=== PATIENT | male | born 1985 | race Caucasian/White ===

== ENCOUNTER 2019-01-18 17:06 | Inpatient (IN) | payer OTHER ==
--- NOTE | 2019-01-18 17:43 | EDM.PDOC ---
ED HPI GENERAL MEDICAL PROBLEM - General Chief Complaint: General Stated Complaint: CHEAST PAIN Time Seen by Provider: 01/18/19 17:22 Source of Information: Reports: Patient History Limitations: Reports: No Limitations - History of Present Illness INITIAL COMMENTS - FREE TEXT/NARRATIVE: Presents via EMS and law enforcement. He was sleeping in his vehicle at an intersection. Presented awake alert and orientated and conversive. He states that he drinks approximately 1.75 L of hard liquor every 2 days and has been doing so for the last couple of years at least. He states "I've been feeling like crap for a long time". He states he does not sleep well and has been told by many people he snores like a freight train and should be tested for sleep apnea. He only gets about 2 hours of sleep at night. 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 Today he drove from [place] to [facility] and then was diverted over to [place] by [facility]. He was "going to get something to eat" when he fell asleep at the intersection. He states that over the last 2 weeks his "Tummy swelled up" but otherwise is not really noticed the severe swelling and redness in his lower legs and feet or the jaundice and his eyes. He does not get any kind of medical care and reports no medical problems. Treatments MANAGER INTENSIVE CARE: Reports: EKG, Oxygen bilat lower extremities Pain Score (Numeric/FACES): 7 - Related Data Allergies Allergy/AdvReac Type Severity Reaction Status Date / Time cephalexin [From Keflex] Allergy Vomiting Verified 01/18/19 17:28 clarithromycin [From Biaxin] Allergy Vomiting Verified 01/18/19 17:28 Home Meds: Home Meds . [No Known Home Meds] 01/18/19 [History] ED ROS GENERAL - Review of Systems Review Of Systems: See Below Constitutional: Reports: Fatigue HEENT: Reports: No Symptoms Respiratory: Reports: Shortness of Breath Cardiovascular: Reports: Dyspnea on Exertion, Edema (abd) Endocrine: Reports: No Symptoms GI/Abdominal: Reports: Other (swelling in abd) : Reports: No Symptoms Musculoskeletal: Reports: No Symptoms Skin: Reports: Other (erythema, 2+ edema from feet up to belly button) Neurological: Reports: No Symptoms Psychiatric: Reports: No Symptoms Hematologic/Lymphatic: Reports: No Symptoms Immunologic: Reports: No Symptoms ED EXAM, GENERAL - Physical Exam Exam: See Below Exam Limited By: No Limitations General Appearance: Alert, No Apparent Distress Ears: Normal External Exam, Normal TMs Nose: Normal Inspection Throat/Mouth: Normal Inspection Head: Atraumatic, Normocephalic Neck: Normal Inspection Respiratory/Chest: No Respiratory Distress, Lungs Clear, Normal Breath Sounds Cardiovascular: Other (2+ pitting edema in the feet and lower legs. Swelling in the lower abdomen up to the umbilicus) GI/Abdominal: Non-Tender, Other (Firm and bright pink from groin to just above the umbilicus,) Back Exam: Normal Inspection Extremities: Other ([place] from toes to thighs with 2-3+ pitting edema) Neurological: Alert, Oriented Psychiatric: Normal Affect, Normal Mood Skin Exam: Warm, Dry, Intact, No Rash, Ecchymosis EKG INTERPRETATION Rhythm: NSR [place]: Normal P-Wave: Present QRS: Normal ST-T: Normal QT: Normal Course - Vital Signs Last Recorded V/S: Last Vital Signs Temp Pulse 109 H 01/18/19 17:17 Resp 24 H 01/18/19 17:17 BP 152/95 H 01/18/19 17:17 Pulse Ox - Orders/Labs/Meds Orders: Active Orders 24 hr Category Date Time Status EKG Documentation Completion [RC] STAT Care 01/18/19 17:25 Ordered CXR [Chest 1V Frontal] [CR] Stat Exams 01/18/19 17:25 Ordered ABG [BLOOD GAS ARTERIAL] [BG] Stat Lab 01/18/19 17:26 Ordered AMYLASE [CHEM] Stat Lab 01/18/19 17:23 Ordered B-TYPE NATRIURETIC PEPTIDE,BNP [CHEM] Stat Lab 01/18/19 17:24 Ordered CBC WITH AUTO DIFF [HEME] Stat Lab 01/18/19 17:23 Ordered CMP [COMPREHENSIVE METABOLIC PN,CMP] [CHEM] Stat Lab 01/18/19 17:23 Ordered LIPASE [CHEM] Stat Lab 01/18/19 17:24 Ordered TROPONIN I [CHEM] Stat Lab 01/18/19 17:24 Ordered - Re-Assessments/Exams Free Text/Narrative Re-Assessment/Exam: 01/18/19 19:[address] Jacques Pruitt, hospitalist regarding labs, history, clinical condition. Same will admit patient. Departure - Departure Time of Disposition: 19:33 Disposition: Admitted As Inpatient 68 Condition: Fair Clinical Impression: Hypokalemia - Discharge Information Referrals: PCP,None [Primary Care Provider] - - My Orders Last 24 Hours: My Active Orders 01/18/19 17:23 AMYLASE [CHEM] Stat CBC WITH AUTO DIFF [HEME] Stat CMP [COMPREHENSIVE METABOLIC PN,CMP] [CHEM] Stat 01/18/19 17:24 B-TYPE NATRIURETIC PEPTIDE,BNP [CHEM] Stat LIPASE [CHEM] Stat TROPONIN I [CHEM] Stat 01/18/19 17:25 EKG Documentation Completion [RC] STAT CXR [Chest 1V Frontal] [CR] Stat 01/18/19 17:26 ABG [BLOOD GAS ARTERIAL] [BG] Stat - Assessment/Plan Last 24 Hours: My Active Orders 01/18/19 17:23 AMYLASE [CHEM] Stat CBC WITH AUTO DIFF [HEME] Stat CMP [COMPREHENSIVE METABOLIC PN,CMP] [CHEM] Stat 01/18/19 17:24 B-TYPE NATRIURETIC PEPTIDE,BNP [CHEM] Stat LIPASE [CHEM] Stat TROPONIN I [CHEM] Stat 01/18/19 17:25 EKG Documentation Completion [RC] STAT CXR [Chest 1V Frontal] [CR] Stat 01/18/19 17:26 ABG [BLOOD GAS ARTERIAL] [BG] Stat
--- NOTE | 2019-01-18 17:54 | CR ---
Indication: Shortness breath. Hypoxia. Fatigue. Technique: Single AP portable view of the chest was obtained. Comparison: None Findings: The left hemidiaphragm is elevated. The heart is normal in size. No infiltrate, pleural effusion, or pneumothorax is identified. Impression: No acute cardiopulmonary process. Dictated by Jennyfer Cooney MD @ Jan 18 2019 5:52PM Signed by Dr. Jennyfer Cooney @ Jan 18 2019 5:52PM
[2019-01-18 17:58] LABS: LIPASE 253 U/L (73-393)
[2019-01-18] MEDS ORDERED: Furosemide 40 MG/4 ML VIAL IVPUSH ONE (18:28)
[2019-01-18 18:54] LABS: BLOOD UREA NITROGEN,BUN 3 mg/dL (7.0-18.0); CARBON DIOXIDE,CO2 30.7 mmol/L (21.0-32.0); CHLORIDE,CL 87 mmol/L (98-107); GLUCOSE RANDOM 117 mg/dL (74-106); POTASSIUM,K 3.1 mmol/L (3.5-5.1); SODIUM,NA 131 mmol/L (136-148)
[2019-01-18] MEDS ORDERED: Potassium Chloride 20 MEQ Tab.ER PO ONE (22:59)
[2019-01-18] MEDS ORDERED: LORazepam 2 MG/ML SDV IVPUSH PRN (23:04)
--- NOTE | 2019-01-18 23:07 | PCM.HP.2 ---
H&P History of Present Illness - General Date of Service: 01/18/19 Admit Problem/Dx: Admission Diagnosis/Problem Admission Diagnosis/Problem Edema - History of Present Illness Initial Comments - Free Text/Narative: 33 yo male who presents to the ED via EMS after being found sleeping in his vehicle at an intersection. He reports increasing fatigue, weakness and swelling. HE reports lower leg edema extending to his abdomen that has been building up over the past three weeks. He reports orthopnea. He reports his sleep has been poor and he is drowsy during the day. He drinks 1 liter of alcohol a day. His eyes are yellow on and off over the past month. He denies any fever or blood in his stool. He denies any history of heart, lung or liver disease bilat lower extremities Pain Score (Numeric/FACES): 7 Bilateral Ankle Pain Score (Numeric/FACES): 5 - Related Data Allergies/Adverse Reactions: Allergies Allergy/AdvReac Type Severity Reaction Status Date / Time cephalexin [From Keflex] Allergy Vomiting Verified 01/18/19 20:37 clarithromycin [From Biaxin] Allergy Vomiting Verified 01/18/19 20:37 Home Medications: Home Meds . [No Known Home Meds] 01/18/19 [History] Past Medical History - Past Surgical History Musculoskeletal Surgical History: Reports: Other (See Below) Other Musculoskeletal Surgeries/Procedures:: L knee surgery "T Plate" Social & Family History - Tobacco Use Smoking Status *Q: Never Smoker Second Hand Smoke Exposure: Yes - Caffeine Use Caffeine Use: Reports: Coffee - Alcohol Use Days Per Week of Alcohol Use: 7 Number of Drinks Per Day: 7 Total Drinks Per Week: 49 Date of Last Drink: 01/18/19 - Recreational Drug Use Recreational Drug Use: No H&P Review of Systems - Review of Systems: Review Of Systems: ROS reveals no pertinent complaints other than HPI. Exam - Exam Exam: See Below - Vital Signs Vital Signs: Last Vital Signs Temp 36.6 C 01/18/19 20:16 Pulse 116 H 01/18/19 20:16 Resp 22 H 01/18/19 20:16 BP 181/117 H 01/18/19 20:16 Pulse Ox 96 01/18/19 20:16 Weight: 206.248 kg - Exam General: Alert, Oriented HEENT: Mucosa Moist & [place] Lungs: Clear to Auscultation, Normal Respiratory Effort Cardiovascular: Regular Rate, Regular Rhythm GI/Abdominal Exam: Other (obese, no fluid wave) Extremities: Pedal Edema (pitting edema up to umbilicus) Skin: Warm, Dry, Intact Neurological: Cranial Nerves Intact, Reflexes Equal Bilateral. No: Focal Deficit - Patient Data Lab Results Last 24 hrs: Laboratory Results - last 24 hr 01/18/19 01/18/19 01/18/19 Range/Units 17:15 17:15 17:15 WBC 11.36 H (4.0-11.0) K/uL RBC 3.77 L (4.50-5.90) M/uL Hgb 13.8 (13.0-17.0) g/dL Hct 40.7 (38.0-50.0) % MCV 108.0 H (80.0-98.0) fL MCH 36.6 H (27.0-32.0) pg MCHC 33.9 (31.0-37.0) g/dL RDW Std Deviation 65.8 H (28.0-62.0) fl RDW Coeff of Judy 17 H (11.0-15.0) % Plt Count 206 (150-400) K/uL MPV 10.80 (7.40-12.00) fL Add Manual Diff YES Neutrophils % (Manual) 81 H (48.0-80.0) % Band Neutrophils % 2 % Lymphocytes % (Manual) 11 L (16.0-40.0) % Monocytes % (Manual) 6 (0.0-15.0) % Nucleated RBC % 1.0 /100WBC Absolute Seg Neuts 9.2 H (1.4-5.7) Band Neutrophils # 0.2 Lymphocytes # (Manual) 1.2 (0.6-2.4) Monocytes # (Manual) 0.7 (0.0-0.8) Nucleated RBCs # 0 K/uL INR Sodium (136-148) mmol/L Potassium (3.5-5.1) mmol/L Chloride (98-107) mmol/L Carbon Dioxide (21.0-32.0) mmol/L BUN (7.0-18.0) mg/dL Creatinine (0.8-1.3) mg/dL Est Cr Clr Drug Dosing mL/min Estimated GFR (MDRD) ml/min Glucose (74-106) mg/dL Calcium (8.5-10.1) mg/dL Magnesium (1.8-2.4) mg/dL Total Bilirubin (0.2-1.0) mg/dL AST (15-37) IU/L ALT (14-63) IU/L Alkaline Phosphatase (46-116) U/L Troponin I < 0.050 (0.000-0.056) ng/mL B-Natriuretic Peptide 43 (<100) PG/ML Total Protein (6.4-8.2) g/dL Albumin (3.4-5.0) g/dL Globulin (2.6-4.0) g/dL Albumin/Globulin Ratio (0.9-1.6) Amylase 55 (25-115) U/L Lipase 253 (73-393) U/L Urine Color Urine Appearance Urine pH (5.0-8.0) Ur Specific [place] (1.001-1.035) Urine Protein (NEGATIVE) mg/dL Urine Glucose (UA) (NEGATIVE) mg/dL Urine Ketones (NEGATIVE) mg/dL Urine Occult Blood (NEGATIVE) Urine Nitrite (NEGATIVE) Urine Bilirubin (NEGATIVE) Urine Ictotest Urine Urobilinogen (<2.0) EU/dL Ur Leukocyte Esterase (NEGATIVE) Urine RBC (0-2/HPF) Urine WBC (0-5/HPF) Ur Epithelial Cells (NONE-FEW) Urine Bacteria (NEGATIVE) Hyaline Casts (0-2/LPF) Coarse Granular Casts (NEGATIVE) Urine Mucus (NONE-MOD) 01/18/19 01/18/19 01/18/19 Range/Units 17:15 18:21 18:21 WBC (4.0-11.0) K/uL RBC (4.50-5.90) M/uL Hgb (13.0-17.0) g/dL Hct (38.0-50.0) % MCV (80.0-98.0) fL MCH (27.0-32.0) pg MCHC (31.0-37.0) g/dL RDW Std Deviation (28.0-62.0) fl RDW Coeff of Judy (11.0-15.0) % Plt Count (150-400) K/uL MPV (7.40-12.00) fL Add Manual Diff Neutrophils % (Manual) (48.0-80.0) % Band Neutrophils % % Lymphocytes % (Manual) (16.0-40.0) % Monocytes % (Manual) (0.0-15.0) % Nucleated RBC % /100WBC Absolute Seg Neuts (1.4-5.7) Band Neutrophils # Lymphocytes # (Manual) (0.6-2.4) Monocytes # (Manual) (0.0-0.8) Nucleated RBCs # K/uL INR 1.28 Sodium 131 L (136-148) mmol/L Potassium 3.1 L (3.5-5.1) mmol/L Chloride 87 L (98-107) mmol/L Carbon Dioxide 30.7 (21.0-32.0) mmol/L BUN 3 L (7.0-18.0) mg/dL Creatinine 0.8 (0.8-1.3) mg/dL Est Cr Clr Drug Dosing 151.20 mL/min Estimated GFR (MDRD) > 60.0 ml/min Glucose 117 H (74-106) mg/dL Calcium 8.6 (8.5-10.1) mg/dL Magnesium 1.6 L (1.8-2.4) mg/dL Total Bilirubin 11.3 H (0.2-1.0) mg/dL AST 378 H (15-37) IU/L ALT 125 H (14-63) IU/L Alkaline Phosphatase 325 H (46-116) U/L Troponin I (0.000-0.056) ng/mL B-Natriuretic Peptide (<100) PG/ML Total Protein 7.9 (6.4-8.2) g/dL Albumin 2.5 L (3.4-5.0) g/dL Globulin 5.4 H (2.6-4.0) g/dL Albumin/Globulin Ratio 0.5 L (0.9-1.6) Amylase (25-115) U/L Lipase (73-393) U/L Urine Color Urine Appearance Urine pH (5.0-8.0) Ur Specific [place] (1.001-1.035) Urine Protein (NEGATIVE) mg/dL Urine Glucose (UA) (NEGATIVE) mg/dL Urine Ketones (NEGATIVE) mg/dL Urine Occult Blood (NEGATIVE) Urine Nitrite (NEGATIVE) Urine Bilirubin (NEGATIVE) Urine Ictotest Urine Urobilinogen (<2.0) EU/dL Ur Leukocyte Esterase (NEGATIVE) Urine RBC (0-2/HPF) Urine WBC (0-5/HPF) Ur Epithelial Cells (NONE-FEW) Urine Bacteria (NEGATIVE) Hyaline Casts (0-2/LPF) Coarse Granular Casts (NEGATIVE) Urine Mucus (NONE-MOD) 01/18/19 Range/Units 19:37 WBC (4.0-11.0) K/uL RBC (4.50-5.90) M/uL Hgb (13.0-17.0) g/dL Hct (38.0-50.0) % MCV (80.0-98.0) fL MCH (27.0-32.0) pg MCHC (31.0-37.0) g/dL RDW Std Deviation (28.0-62.0) fl RDW Coeff of Judy (11.0-15.0) % Plt Count (150-400) K/uL MPV (7.40-12.00) fL Add Manual Diff Neutrophils % (Manual) (48.0-80.0) % Band Neutrophils % % Lymphocytes % (Manual) (16.0-40.0) % Monocytes % (Manual) (0.0-15.0) % Nucleated RBC % /100WBC Absolute Seg Neuts (1.4-5.7) Band Neutrophils # Lymphocytes # (Manual) (0.6-2.4) Monocytes # (Manual) (0.0-0.8) Nucleated RBCs # K/uL INR Sodium (136-148) mmol/L Potassium (3.5-5.1) mmol/L Chloride (98-107) mmol/L Carbon Dioxide (21.0-32.0) mmol/L BUN (7.0-18.0) mg/dL Creatinine (0.8-1.3) mg/dL Est Cr Clr Drug Dosing mL/min Estimated GFR (MDRD) ml/min Glucose (74-106) mg/dL Calcium (8.5-10.1) mg/dL Magnesium (1.8-2.4) mg/dL Total Bilirubin (0.2-1.0) mg/dL AST (15-37) IU/L ALT (14-63) IU/L Alkaline Phosphatase (46-116) U/L Troponin I (0.000-0.056) ng/mL B-Natriuretic Peptide (<100) PG/ML Total Protein (6.4-8.2) g/dL Albumin (3.4-5.0) g/dL Globulin (2.6-4.0) g/dL Albumin/Globulin Ratio (0.9-1.6) Amylase (25-115) U/L Lipase (73-393) U/L Urine Color YELLOW Urine Appearance HAZY Urine pH 6.0 (5.0-8.0) Ur Specific [place] 1.015 (1.001-1.035) Urine Protein 30 H (NEGATIVE) mg/dL Urine Glucose (UA) NEGATIVE (NEGATIVE) mg/dL Urine Ketones NEGATIVE (NEGATIVE) mg/dL Urine Occult Blood TRACE-INTACT H (NEGATIVE) Urine Nitrite NEGATIVE (NEGATIVE) Urine Bilirubin LARGE H (NEGATIVE) Urine Ictotest POSITIVE Urine Urobilinogen 1.0 (<2.0) EU/dL Ur Leukocyte Esterase NEGATIVE (NEGATIVE) Urine RBC 0-2 (0-2/HPF) Urine WBC 2-4 (0-5/HPF) Ur Epithelial Cells OCCASIONAL (NONE-FEW) Urine Bacteria FEW (NEGATIVE) Hyaline Casts 0-2 (0-2/LPF) Coarse Granular Casts 0-2 (NEGATIVE) Urine Mucus LIGHT (NONE-MOD) Result Diagrams: 01/21/19 06:23 01/21/19 06:23 Problem List Initiated/Reviewed/Updated: Yes Orders Last 24hrs: Active Orders 24 hr Category Date Time Status Patient Status [ADT] Stat ADT 01/18/19 19:27 Active Antiembolic Devices [RC] PER UNIT ROUTINE Care 01/18/19 23:01 Ordered EKG Documentation Completion [RC] STAT Care 01/18/19 17:25 Active Oxygen Therapy [RC] PRN Care 01/18/19 23:00 Ordered Up ad Eleni [RC] ASDIRECTED Care 01/18/19 22:59 Ordered VTE/DVT Education [RC] PER UNIT ROUTINE Care 01/18/19 23:00 Ordered Vital Signs [RC] Q4H Care 01/18/19 23:00 Ordered Regular Diet [DIET] Diet 01/18/19 Breakfast Ordered Abdomen Comp [US] Routine Exams 01/18/19 23:04 Ordered Echo Comp wo Cont [US] Routine Exams 01/18/19 23:04 Ordered CBC WITH AUTO DIFF [HEME] AM Lab 01/19/19 05:11 Ordered CBC WITH AUTO DIFF [HEME] AM Lab 01/20/19 05:11 Ordered CBC WITH AUTO DIFF [HEME] AM Lab 01/21/19 05:11 Ordered CBC WITH AUTO DIFF [HEME] AM Lab 01/22/19 05:11 Ordered CBC WITH AUTO DIFF [HEME] AM Lab 01/23/19 05:11 Ordered COMPREHENSIVE METABOLIC PN,CMP [CHEM] AM Lab 01/19/19 05:11 Ordered COMPREHENSIVE METABOLIC PN,CMP [CHEM] AM Lab 01/20/19 05:11 Ordered COMPREHENSIVE METABOLIC PN,CMP [CHEM] AM Lab 01/21/19 05:11 Ordered COMPREHENSIVE METABOLIC PN,CMP [CHEM] AM Lab 01/22/19 05:11 Ordered COMPREHENSIVE METABOLIC PN,CMP [CHEM] AM Lab 01/23/19 05:11 Ordered HEPATITIS PANEL (4) [REF] Routine Lab 01/18/19 21:33 Ordered INR,PT,PROTHROMBIN TIME [COAG] AM Lab 01/19/19 05:11 Ordered INR,PT,PROTHROMBIN TIME [COAG] AM Lab 01/20/19 05:11 Ordered INR,PT,PROTHROMBIN TIME [COAG] AM Lab 01/21/19 05:11 Ordered INR,PT,PROTHROMBIN TIME [COAG] AM Lab 01/22/19 05:11 Ordered INR,PT,PROTHROMBIN TIME [COAG] AM Lab 01/23/19 05:11 Ordered MAGNESIUM [CHEM] AM Lab 01/19/19 05:11 Ordered MAGNESIUM [CHEM] AM Lab 01/20/19 05:11 Ordered MAGNESIUM [CHEM] AM Lab 01/21/19 05:11 Ordered MAGNESIUM [CHEM] AM Lab 01/22/19 05:11 Ordered MAGNESIUM [CHEM] AM Lab 01/23/19 05:11 Ordered PHOSPHORUS [CHEM] AM Lab 01/19/19 05:11 Ordered PHOSPHORUS [CHEM] AM Lab 01/20/19 05:11 Ordered PHOSPHORUS [CHEM] AM Lab 01/21/19 05:11 Ordered PHOSPHORUS [CHEM] AM Lab 01/22/19 05:11 Ordered PHOSPHORUS [CHEM] AM Lab 01/23/19 05:11 Ordered Folic Acid Med 01/18/19 23:15 Ordered 1 mg SUBCUT DAILY LORazepam [Ativan] Med 01/18/19 23:04 Ordered See Protocol IVPUSH Q4H PRN Pantoprazole [ProTONIX] Med 01/18/19 23:15 Ordered 40 mg PO DAILY Thiamine [Vitamin B-1] Med 01/18/19 23:15 Ordered 100 mg IV DAILY Sequential Compression Device [OM.PC] Per Unit Routine Oth 01/18/19 23:00 Ordered Resuscitation Status Routine Resus Stat 01/18/19 22:59 Ordered Medication Orders Folic Acid (Folic Acid) 1 mg SUBCUT DAILY MAUDE Lorazepam (Ativan) 0 mg IVPUSH Q4H PRN; Protocol PRN Reason: Agitation Pantoprazole Sodium (Protonix) 40 mg PO DAILY MAUDE Thiamine HCl (Vitamin B-1) 100 mg IV DAILY MAUDE Assessment/Plan Comment:: 33 yo male admitted with edema, hyperbilirubinemia and alcohol abuse concerning for ETOH cirrhosis, acute hepatitis or heart failure. We will diurese with lasix, obtain echocardiogram, abdominal ultrasound. We will give Ativan prn CIWA protocol with thiamin and folic acid.
[2019-01-18] MEDS: Pantoprazole 40 MG Tab.CR PO SCH (23:41)
[2019-01-18] MEDS: Thiamine 200 MG/2 ML MDV IV SCH (23:44)
[2019-01-18] MEDS: Folic Acid 50 MG/10 ML MDV SUBCUT SCH (23:49)
[2019-01-19 05:31] LABS: BLOOD UREA NITROGEN,BUN 4 mg/dL (7.0-18.0); CARBON DIOXIDE,CO2 32.7 mmol/L (21.0-32.0); CHLORIDE,CL 90 mmol/L (98-107); GLUCOSE RANDOM 114 mg/dL (74-106); POTASSIUM,K 3.8 mmol/L (3.5-5.1); SODIUM,NA 132 mmol/L (136-148)
[2019-01-19] MEDS ORDERED: Potassium Chloride 20 MEQ Tab.ER PO ONE (07:57)
[2019-01-19] MEDS ORDERED: Magnesium Sulfate/Water 4 GM in Premix Bag 1 BAG IV ONE (07:57)
[2019-01-19] MEDS: Pantoprazole 40 MG Tab.CR PO SCH (08:31)
[2019-01-19] MEDS: Thiamine 200 MG/2 ML MDV IV SCH (08:31)
[2019-01-19] MEDS: Folic Acid 50 MG/10 ML MDV SUBCUT SCH (08:31)
[2019-01-19] MEDS ORDERED: Furosemide 40 MG/4 ML VIAL IVPUSH ONE (09:20)
--- NOTE | 2019-01-19 09:50 | PCM.PN ---
- General Info Date of Service: 01/19/19 Admission Dx/Problem (Free Text): Admission Diagnosis/Problem Admission Diagnosis/Problem Edema, dyspnea Subjective Update: Feeling about the same today, short of breath and a lot of swelling noted. No chest pain or abdominal pain. Skin to legs feels sunburned. Functional Status: Reports: Pain Controlled, Tolerating Diet, Ambulating - Review of Systems General: Reports: No Symptoms. Denies: Weakness, Fatigue, Malaise Pulmonary: Reports: Shortness of Breath. Denies: Cough Cardiovascular: Reports: Dyspnea on Exertion, Edema. Denies: Chest Pain, Palpitations Gastrointestinal: Reports: No Symptoms. Denies: Abdominal Pain, Nausea, Vomiting Genitourinary: Reports: No Symptoms Skin: Reports: Jaundice Neurological: Reports: No Symptoms Psychiatric: Reports: No Symptoms - Patient Data Vitals - Most Recent: Last Vital Signs Temp 97.3 F 01/19/19 07:53 Pulse 110 H 01/19/19 07:53 Resp 24 H 01/19/19 07:53 BP 150/70 H 01/19/19 07:53 Pulse Ox 93 L 01/19/19 07:53 Weight - Most Recent: 205.976 kg I&O - Last 24 Hours: Intake & Output 01/18/19 01/19/19 01/19/19 22:59 06:59 14:59 Intake Total 1900 Output Total 775 Balance 1125 Lab Results Last 24 Hours: Laboratory Results - last 24 hr 01/18/19 01/18/19 01/18/19 Range/Units 17:15 17:15 17:15 WBC 11.36 H (4.0-11.0) K/uL RBC 3.77 L (4.50-5.90) M/uL Hgb 13.8 (13.0-17.0) g/dL Hct 40.7 (38.0-50.0) % MCV 108.0 H (80.0-98.0) fL MCH 36.6 H (27.0-32.0) pg MCHC 33.9 (31.0-37.0) g/dL RDW Std Deviation 65.8 H (28.0-62.0) fl RDW Coeff of Judy 17 H (11.0-15.0) % Plt Count 206 (150-400) K/uL MPV 10.80 (7.40-12.00) fL Neut % (Auto) (48.0-80.0) % Lymph % (Auto) (16.0-40.0) % Lincoln % (Auto) (0.0-15.0) % Eos % (Auto) (0.0-7.0) % Baso % (Auto) (0.0-1.5) % Neut # (Auto) (1.4-5.7) K/uL Lymph # (Auto) (0.6-2.4) K/uL Lincoln # (Auto) (0.0-0.8) K/uL Eos # (Auto) (0.0-0.7) K/uL Baso # (Auto) (0.0-0.1) K/uL Add Manual Diff YES Neutrophils % (Manual) 81 H (48.0-80.0) % Band Neutrophils % 2 % Lymphocytes % (Manual) 11 L (16.0-40.0) % Monocytes % (Manual) 6 (0.0-15.0) % Nucleated RBC % 1.0 /100WBC Absolute Seg Neuts 9.2 H (1.4-5.7) Band Neutrophils # 0.2 Lymphocytes # (Manual) 1.2 (0.6-2.4) Monocytes # (Manual) 0.7 (0.0-0.8) Nucleated RBCs # 0 K/uL INR Sodium (136-148) mmol/L Potassium (3.5-5.1) mmol/L Chloride (98-107) mmol/L Carbon Dioxide (21.0-32.0) mmol/L BUN (7.0-18.0) mg/dL Creatinine (0.8-1.3) mg/dL Est Cr Clr Drug Dosing mL/min Estimated GFR (MDRD) ml/min Glucose (74-106) mg/dL Calcium (8.5-10.1) mg/dL Phosphorus (2.6-4.7) mg/dL Magnesium (1.8-2.4) mg/dL Total Bilirubin (0.2-1.0) mg/dL AST (15-37) IU/L ALT (14-63) IU/L Alkaline Phosphatase (46-116) U/L Troponin I < 0.050 (0.000-0.056) ng/mL B-Natriuretic Peptide 43 (<100) PG/ML Total Protein (6.4-8.2) g/dL Albumin (3.4-5.0) g/dL Globulin (2.6-4.0) g/dL Albumin/Globulin Ratio (0.9-1.6) Amylase 55 (25-115) U/L Lipase 253 (73-393) U/L Urine Color Urine Appearance Urine pH (5.0-8.0) Ur Specific [place] (1.001-1.035) Urine Protein (NEGATIVE) mg/dL Urine Glucose (UA) (NEGATIVE) mg/dL Urine Ketones (NEGATIVE) mg/dL Urine Occult Blood (NEGATIVE) Urine Nitrite (NEGATIVE) Urine Bilirubin (NEGATIVE) Urine Ictotest Urine Urobilinogen (<2.0) EU/dL Ur Leukocyte Esterase (NEGATIVE) Urine RBC (0-2/HPF) Urine WBC (0-5/HPF) Ur Epithelial Cells (NONE-FEW) Urine Bacteria (NEGATIVE) Hyaline Casts (0-2/LPF) Coarse Granular Casts (NEGATIVE) Urine Mucus (NONE-MOD) 01/18/19 01/18/19 01/18/19 Range/Units 17:15 18:21 18:21 WBC (4.0-11.0) K/uL RBC (4.50-5.90) M/uL Hgb (13.0-17.0) g/dL Hct (38.0-50.0) % MCV (80.0-98.0) fL MCH (27.0-32.0) pg MCHC (31.0-37.0) g/dL RDW Std Deviation (28.0-62.0) fl RDW Coeff of Judy (11.0-15.0) % Plt Count (150-400) K/uL MPV (7.40-12.00) fL Neut % (Auto) (48.0-80.0) % Lymph % (Auto) (16.0-40.0) % Lincoln % (Auto) (0.0-15.0) % Eos % (Auto) (0.0-7.0) % Baso % (Auto) (0.0-1.5) % Neut # (Auto) (1.4-5.7) K/uL Lymph # (Auto) (0.6-2.4) K/uL Lincoln # (Auto) (0.0-0.8) K/uL Eos # (Auto) (0.0-0.7) K/uL Baso # (Auto) (0.0-0.1) K/uL Add Manual Diff Neutrophils % (Manual) (48.0-80.0) % Band Neutrophils % % Lymphocytes % (Manual) (16.0-40.0) % Monocytes % (Manual) (0.0-15.0) % Nucleated RBC % /100WBC Absolute Seg Neuts (1.4-5.7) Band Neutrophils # Lymphocytes # (Manual) (0.6-2.4) Monocytes # (Manual) (0.0-0.8) Nucleated RBCs # K/uL INR 1.28 Sodium 131 L (136-148) mmol/L Potassium 3.1 L (3.5-5.1) mmol/L Chloride 87 L (98-107) mmol/L Carbon Dioxide 30.7 (21.0-32.0) mmol/L BUN 3 L (7.0-18.0) mg/dL Creatinine 0.8 (0.8-1.3) mg/dL Est Cr Clr Drug Dosing 151.20 mL/min Estimated GFR (MDRD) > 60.0 ml/min Glucose 117 H (74-106) mg/dL Calcium 8.6 (8.5-10.1) mg/dL Phosphorus (2.6-4.7) mg/dL Magnesium 1.6 L (1.8-2.4) mg/dL Total Bilirubin 11.3 H (0.2-1.0) mg/dL AST 378 H (15-37) IU/L ALT 125 H (14-63) IU/L Alkaline Phosphatase 325 H (46-116) U/L Troponin I (0.000-0.056) ng/mL B-Natriuretic Peptide (<100) PG/ML Total Protein 7.9 (6.4-8.2) g/dL Albumin 2.5 L (3.4-5.0) g/dL Globulin 5.4 H (2.6-4.0) g/dL Albumin/Globulin Ratio 0.5 L (0.9-1.6) Amylase (25-115) U/L Lipase (73-393) U/L Urine Color Urine Appearance Urine pH (5.0-8.0) Ur Specific [place] (1.001-1.035) Urine Protein (NEGATIVE) mg/dL Urine Glucose (UA) (NEGATIVE) mg/dL Urine Ketones (NEGATIVE) mg/dL Urine Occult Blood (NEGATIVE) Urine Nitrite (NEGATIVE) Urine Bilirubin (NEGATIVE) Urine Ictotest Urine Urobilinogen (<2.0) EU/dL Ur Leukocyte Esterase (NEGATIVE) Urine RBC (0-2/HPF) Urine WBC (0-5/HPF) Ur Epithelial Cells (NONE-FEW) Urine Bacteria (NEGATIVE) Hyaline Casts (0-2/LPF) Coarse Granular Casts (NEGATIVE) Urine Mucus (NONE-MOD) 01/18/19 01/19/19 01/19/19 Range/Units 19:37 04:55 04:55 WBC 11.84 H (4.0-11.0) K/uL RBC 3.74 L (4.50-5.90) M/uL Hgb 13.7 (13.0-17.0) g/dL Hct 40.8 (38.0-50.0) % MCV 109.1 H (80.0-98.0) fL MCH 36.6 H (27.0-32.0) pg MCHC 33.6 (31.0-37.0) g/dL RDW Std Deviation 68.4 H (28.0-62.0) fl RDW Coeff of Judy 17 H (11.0-15.0) % Plt Count 184 (150-400) K/uL MPV 11.10 (7.40-12.00) fL Neut % (Auto) 78.4 (48.0-80.0) % Lymph % (Auto) 12.6 L (16.0-40.0) % Lincoln % (Auto) 8.5 (0.0-15.0) % Eos % (Auto) 0.2 (0.0-7.0) % Baso % (Auto) 0.3 (0.0-1.5) % Neut # (Auto) 9.3 H (1.4-5.7) K/uL Lymph # (Auto) 1.5 (0.6-2.4) K/uL Lincoln # (Auto) 1.0 H (0.0-0.8) K/uL Eos # (Auto) 0.0 (0.0-0.7) K/uL Baso # (Auto) 0.0 (0.0-0.1) K/uL Add Manual Diff Neutrophils % (Manual) (48.0-80.0) % Band Neutrophils % % Lymphocytes % (Manual) (16.0-40.0) % Monocytes % (Manual) (0.0-15.0) % Nucleated RBC % 0.7 /100WBC Absolute Seg Neuts (1.4-5.7) Band Neutrophils # Lymphocytes # (Manual) (0.6-2.4) Monocytes # (Manual) (0.0-0.8) Nucleated RBCs # 0 K/uL INR 1.29 Sodium (136-148) mmol/L Potassium (3.5-5.1) mmol/L Chloride (98-107) mmol/L Carbon Dioxide (21.0-32.0) mmol/L BUN (7.0-18.0) mg/dL Creatinine (0.8-1.3) mg/dL Est Cr Clr Drug Dosing mL/min Estimated GFR (MDRD) ml/min Glucose (74-106) mg/dL Calcium (8.5-10.1) mg/dL Phosphorus (2.6-4.7) mg/dL Magnesium (1.8-2.4) mg/dL Total Bilirubin (0.2-1.0) mg/dL AST (15-37) IU/L ALT (14-63) IU/L Alkaline Phosphatase (46-116) U/L Troponin I (0.000-0.056) ng/mL B-Natriuretic Peptide (<100) PG/ML Total Protein (6.4-8.2) g/dL Albumin (3.4-5.0) g/dL Globulin (2.6-4.0) g/dL Albumin/Globulin Ratio (0.9-1.6) Amylase (25-115) U/L Lipase (73-393) U/L Urine Color YELLOW Urine Appearance HAZY Urine pH 6.0 (5.0-8.0) Ur Specific [place] 1.015 (1.001-1.035) Urine Protein 30 H (NEGATIVE) mg/dL Urine Glucose (UA) NEGATIVE (NEGATIVE) mg/dL Urine Ketones NEGATIVE (NEGATIVE) mg/dL Urine Occult Blood TRACE-INTACT H (NEGATIVE) Urine Nitrite NEGATIVE (NEGATIVE) Urine Bilirubin LARGE H (NEGATIVE) Urine Ictotest POSITIVE Urine Urobilinogen 1.0 (<2.0) EU/dL Ur Leukocyte Esterase NEGATIVE (NEGATIVE) Urine RBC 0-2 (0-2/HPF) Urine WBC 2-4 (0-5/HPF) Ur Epithelial Cells OCCASIONAL (NONE-FEW) Urine Bacteria FEW (NEGATIVE) Hyaline Casts 0-2 (0-2/LPF) Coarse Granular Casts 0-2 (NEGATIVE) Urine Mucus LIGHT (NONE-MOD) 01/19/19 Range/Units 04:55 WBC (4.0-11.0) K/uL RBC (4.50-5.90) M/uL Hgb (13.0-17.0) g/dL Hct (38.0-50.0) % MCV (80.0-98.0) fL MCH (27.0-32.0) pg MCHC (31.0-37.0) g/dL RDW Std Deviation (28.0-62.0) fl RDW Coeff of Judy (11.0-15.0) % Plt Count (150-400) K/uL MPV (7.40-12.00) fL Neut % (Auto) (48.0-80.0) % Lymph % (Auto) (16.0-40.0) % Lincoln % (Auto) (0.0-15.0) % Eos % (Auto) (0.0-7.0) % Baso % (Auto) (0.0-1.5) % Neut # (Auto) (1.4-5.7) K/uL Lymph # (Auto) (0.6-2.4) K/uL Lincoln # (Auto) (0.0-0.8) K/uL Eos # (Auto) (0.0-0.7) K/uL Baso # (Auto) (0.0-0.1) K/uL Add Manual Diff Neutrophils % (Manual) (48.0-80.0) % Band Neutrophils % % Lymphocytes % (Manual) (16.0-40.0) % Monocytes % (Manual) (0.0-15.0) % Nucleated RBC % /100WBC Absolute Seg Neuts (1.4-5.7) Band Neutrophils # Lymphocytes # (Manual) (0.6-2.4) Monocytes # (Manual) (0.0-0.8) Nucleated RBCs # K/uL INR Sodium 132 L (136-148) mmol/L Potassium 3.8 (3.5-5.1) mmol/L Chloride 90 L (98-107) mmol/L Carbon Dioxide 32.7 H (21.0-32.0) mmol/L BUN 4 L (7.0-18.0) mg/dL Creatinine 0.9 (0.8-1.3) mg/dL Est Cr Clr Drug Dosing 133.76 mL/min Estimated GFR (MDRD) > 60.0 ml/min Glucose 114 H (74-106) mg/dL Calcium 8.3 L (8.5-10.1) mg/dL Phosphorus 2.7 (2.6-4.7) mg/dL Magnesium 1.4 L (1.8-2.4) mg/dL Total Bilirubin 12.1 H (0.2-1.0) mg/dL AST 343 H (15-37) IU/L ALT 118 H (14-63) IU/L Alkaline Phosphatase 305 H (46-116) U/L Troponin I (0.000-0.056) ng/mL B-Natriuretic Peptide (<100) PG/ML Total Protein 7.4 (6.4-8.2) g/dL Albumin 2.3 L (3.4-5.0) g/dL Globulin 5.1 H (2.6-4.0) g/dL Albumin/Globulin Ratio 0.5 L (0.9-1.6) Amylase (25-115) U/L Lipase (73-393) U/L Urine Color Urine Appearance Urine pH (5.0-8.0) Ur Specific [place] (1.001-1.035) Urine Protein (NEGATIVE) mg/dL Urine Glucose (UA) (NEGATIVE) mg/dL Urine Ketones (NEGATIVE) mg/dL Urine Occult Blood (NEGATIVE) Urine Nitrite (NEGATIVE) Urine Bilirubin (NEGATIVE) Urine Ictotest Urine Urobilinogen (<2.0) EU/dL Ur Leukocyte Esterase (NEGATIVE) Urine RBC (0-2/HPF) Urine WBC (0-5/HPF) Ur Epithelial Cells (NONE-FEW) Urine Bacteria (NEGATIVE) Hyaline Casts (0-2/LPF) Coarse Granular Casts (NEGATIVE) Urine Mucus (NONE-MOD) Med Orders - Current: Current Medications Folic Acid (Folic Acid) 1 mg SUBCUT DAILY [facility] Last Admin: 01/19/19 08:31 Dose: 1 mg Magnesium Sulfate 4 gm/ Premix 100 mls @ 50 mls/hr IV ONETIME ONE Stop: 01/19/19 09:56 Last Admin: 01/19/19 08:21 Dose: 50 mls/hr Lorazepam (Ativan) 0 mg IVPUSH Q4H PRN; Protocol PRN Reason: Agitation Last Admin: 01/18/19 23:52 Dose: 2 mg Pantoprazole Sodium (Protonix) 40 mg PO DAILY [facility] Last Admin: 01/19/19 08:31 Dose: 40 mg Thiamine HCl (Vitamin B-1) 100 mg IV DAILY [facility] Last Admin: 01/19/19 08:31 Dose: 100 mg Discontinued Medications Furosemide (Lasix) 40 mg IVPUSH NOW ONE Stop: 01/18/19 18:29 Last Admin: 01/18/19 18:39 Dose: 40 mg Furosemide (Lasix) 40 mg IVPUSH NOW ONE Stop: 01/19/19 09:21 Last Admin: 01/19/19 09:29 Dose: 40 mg Potassium Chloride (Klor-Con M20) 40 meq PO ONETIME ONE Stop: 01/18/19 23:00 Last Admin: 01/18/19 23:41 Dose: 40 meq Potassium Chloride (Klor-Con M20) 20 meq PO ONETIME ONE Stop: 01/19/19 07:58 Last Admin: 01/19/19 08:31 Dose: 20 meq - Exam Quality Assessment: Supplemental Oxygen, DVT Prophylaxis General: Alert, Oriented, Cooperative, Mild Distress (dyspnea) HEENT: Scleral Icterus Neck: Supple, Trachea Midline, JVD Lungs: Decreased Breath Sounds (bilaterally) Cardiovascular: Regular Rhythm, Tachycardia GI/Abdominal Exam: Normal Bowel Sounds, Soft, Non-Tender Extremities: Normal Inspection, Normal Range of Motion, Non-Tender, Pedal Edema (+4 pitting edema) Skin: Other (anasarca noted to lower extremities and abdomen. Wound to abdomen, reports dog scratched him.) Neurological: No New Focal Deficit Psy/Mental Status: Alert, Normal Affect, Normal Mood, Withdrawal Symptoms ( tremulous) - Problem List & Annotations (1) Congestive heart failure SNOMED Code(s): 86338376 Code(s): I50.9 - HEART FAILURE, UNSPECIFIED Status: Suspected Current Visit: Yes Qualifiers: Heart failure type: unspecified Heart failure chronicity: acute Qualified Code(s): I50.9 - Heart failure, unspecified (2) Dyspnea SNOMED Code(s): 176107501 Code(s): R06.00 - DYSPNEA, UNSPECIFIED Status: Acute Current Visit: Yes (3) Elevated liver function tests SNOMED Code(s): 212806086, 303637621 Code(s): R94.5 - ABNORMAL RESULTS OF LIVER FUNCTION STUDIES Status: Acute Current Visit: Yes (4) Hypomagnesemia SNOMED Code(s): 815772479 Code(s): E83.42 - HYPOMAGNESEMIA Status: Acute Current Visit: Yes (5) Hypokalemia SNOMED Code(s): 36977672 Code(s): E87.6 - HYPOKALEMIA Status: Acute Current Visit: Yes (6) Hyperbilirubinemia SNOMED Code(s): 44382043 Code(s): E80.6 - OTHER DISORDERS OF BILIRUBIN METABOLISM Status: Acute Current Visit: Yes (7) Morbid obesity SNOMED Code(s): 348504282 Code(s): E66.01 - MORBID (SEVERE) OBESITY DUE TO EXCESS CALORIES Status: Chronic Current Visit: Yes (8) Alcohol abuse SNOMED Code(s): 58722153 Code(s): F10.10 - ALCOHOL ABUSE, UNCOMPLICATED Status: Chronic Current Visit: Yes - Problem List Review Problem List Initiated/Reviewed/Updated: Yes - My Orders Last 24 Hours: My Active Orders 01/19/19 07:57 Magnesium Sulfate/Water [Magnesium Sulfate in Water Premix] 4 gm Premix Bag 1 bag IV ONETIME 01/19/19 07:58 Height and Weight [RC] DAILY Intake and Output Strict [RC] Q12H 01/19/19 14:00 Furosemide [Lasix] 40 mg IVPUSH BIDDIURETIC 01/19/19 Lunch Low Sodium [Sodium Restricted Diet] [DIET] - Plan Plan:: 33 yo male admitted with edema, hyperbilirubinemia and alcohol abuse concerning for ETOH cirrhosis, acute hepatitis or heart failure. 1. Possible CHF: ECHO pending. Diureses today with Lsix 40 mg IV TID. Strict I/ O 1.8 FR, Low NA diet. Daily weights. Monitor on telemetry. No chest pain. Dyspnea continues. Will need outpatient sleep study. 2. Possible acute hepatitis: Abdominal US obtained. Hepatitis panel pending. Continue to monitor. Will need follow up with GI and continue to encourage sobriety. 3. Alcohol abuse: CIWAA assessment. Continue Ativan prn Per CIWAA protocol. Supplement with thiamine and folic acid. VTE prophylaxis: Heparin Q8hr Dispo: 3 days pending improvement with diuresis.
--- NOTE | 2019-01-19 12:29 | US ---
Abdominal ultrasound: Multiple real-time images were obtained. Technologist's note: Limited due to body habitus Comparison: No prior abdominal imaging is available. Liver is diffusely echogenic. This is most likely due to fatty infiltration. No discrete focal abnormality is appreciated within the liver. Aorta not seen due to bowel gas. Pancreas is also obscured. Gallbladder shows no shadowing gallstones. No gallbladder wall thickening or biliary duct dilatation is seen. Kidneys show no hydronephrosis or discrete mass. Right kidney length is 14.3 cm and left kidney length is 14.4 cm. Spleen size is normal. Impression: 1. Somewhat limited study as noted above. 2. Probable fatty infiltration within the liver. 3. No additional abnormality is appreciated. Diagnostic code #2 MTDD
[2019-01-19] MEDS ORDERED: Furosemide 40 MG/4 ML VIAL IVPUSH SCH (14:00)
[2019-01-19] MEDS: Furosemide 40 MG/4 ML VIAL IVPUSH SCH ×2 (14:51→22:14)
[2019-01-19] MEDS: Heparin Sodium 5,000 Units/ML Vial SUBCUT SCH ×2 (14:51→22:15)
--- NOTE | 2019-01-19 15:40 | PCM.SN ---
- Free Text/Narrative Note: Spoke with family regarding abdominal US findings. Rosales sleepy and family reports he is struggling to rest. He is not lethargic, he is easily arousable and conversational. Discussed with Dr Rodriguez, will consult RT for CPAP placement for sleep. CPAP order for RT to titrate. Yumiko, RT notified and placed CPAP. Will monitor overnight. CPAP initially placed with pressure of 8 and FIO2 at 25%. Titrate as needed.
[2019-01-20] MEDS: Furosemide 40 MG/4 ML VIAL IVPUSH SCH ×3 (05:32→21:30)
[2019-01-20] MEDS: Heparin Sodium 5,000 Units/ML Vial SUBCUT SCH ×3 (05:32→21:33)
[2019-01-20 05:54] LABS: BLOOD UREA NITROGEN,BUN 3 mg/dL (7.0-18.0); CARBON DIOXIDE,CO2 37.7 mmol/L (21.0-32.0); CHLORIDE,CL 91 mmol/L (98-107); GLUCOSE RANDOM 106 mg/dL (74-106); POTASSIUM,K 2.9 mmol/L (3.5-5.1); SODIUM,NA 134 mmol/L (136-148)
[2019-01-20] MEDS: Pantoprazole 40 MG Tab.CR PO SCH (08:35)
[2019-01-20] MEDS: Folic Acid 50 MG/10 ML MDV SUBCUT SCH (08:35)
[2019-01-20] MEDS: Thiamine 200 MG/2 ML MDV IV SCH (08:43)
[2019-01-20] MEDS ORDERED: Magnesium Sulfate/Water 4 GM in Premix Bag 1 BAG IV ONE (11:01)
[2019-01-20] MEDS ORDERED: Potassium Chloride 20 MEQ Tab.ER PO ONE (11:01)
--- NOTE | 2019-01-20 16:14 | PCM.PN ---
- General Info Date of Service: 01/20/19 - Review of Systems General: Denies: Fever, Weakness HEENT: Denies: Contact Lenses, Dysphasia, Ear Pain Pulmonary: Reports: Shortness of Breath. Denies: Pleuritic Chest Pain, Cough Cardiovascular: Reports: Dyspnea on Exertion, Orthopnea, PND, Edema. Denies: Chest Pain, Palpitations Gastrointestinal: Denies: Abdominal Pain, Constipation, Decreased Appetite, Diarrhea Genitourinary: Denies: Dysuria, Frequency, Burning Musculoskeletal: Denies: Neck Pain, Shoulder Pain, Arm Pain Skin: Denies: Cyanosis, Jaundice, Mottled Neurological: Denies: Confusion, Dizziness - Patient Data Vitals - Most Recent: Last Vital Signs Temp 36.6 C 01/20/19 15:56 Pulse 92 01/20/19 15:56 Resp 20 01/20/19 15:56 BP 127/70 01/20/19 15:56 Pulse Ox 96 01/20/19 15:56 Weight - Most Recent: 443 lb I&O - Last 24 Hours: Intake & Output 01/20/19 01/20/19 01/20/19 06:59 14:59 22:59 Intake Total 500 Output Total 2405 Balance -1905 Lab Results Last 24 Hours: Laboratory Results - last 24 hr 01/20/19 01/20/19 01/20/19 Range/Units 05:15 05:15 05:15 WBC 9.72 (4.0-11.0) K/uL RBC 3.42 L (4.50-5.90) M/uL Hgb 12.3 L (13.0-17.0) g/dL Hct 38.0 (38.0-50.0) % MCV 111.1 H (80.0-98.0) fL MCH 36.0 H (27.0-32.0) pg MCHC 32.4 (31.0-37.0) g/dL RDW Std Deviation 69.9 H (28.0-62.0) fl RDW Coeff of Judy 18 H (11.0-15.0) % Plt Count 175 (150-400) K/uL MPV 11.30 (7.40-12.00) fL Neut % (Auto) 74.7 (48.0-80.0) % Lymph % (Auto) 11.8 L (16.0-40.0) % Stephens % (Auto) 13.0 (0.0-15.0) % Eos % (Auto) 0.3 (0.0-7.0) % Baso % (Auto) 0.2 (0.0-1.5) % Neut # (Auto) 7.3 H (1.4-5.7) K/uL Lymph # (Auto) 1.2 (0.6-2.4) K/uL Stephens # (Auto) 1.3 H (0.0-0.8) K/uL Eos # (Auto) 0.0 (0.0-0.7) K/uL Baso # (Auto) 0.0 (0.0-0.1) K/uL Nucleated RBC % 1.0 /100WBC Nucleated RBCs # 0 K/uL INR 1.40 Sodium 134 L (136-148) mmol/L Potassium 2.9 L (3.5-5.1) mmol/L Chloride 91 L (98-107) mmol/L Carbon Dioxide 37.7 H (21.0-32.0) mmol/L BUN 3 L (7.0-18.0) mg/dL Creatinine 0.8 (0.8-1.3) mg/dL Est Cr Clr Drug Dosing 150.48 mL/min Estimated GFR (MDRD) > 60.0 ml/min Glucose 106 (74-106) mg/dL Calcium 8.0 L (8.5-10.1) mg/dL Phosphorus 1.7 L (2.6-4.7) mg/dL Magnesium 1.5 L (1.8-2.4) mg/dL Total Bilirubin 12.3 H (0.2-1.0) mg/dL AST 247 H (15-37) IU/L ALT 90 H (14-63) IU/L Alkaline Phosphatase 232 H (46-116) U/L Total Protein 6.2 L (6.4-8.2) g/dL Albumin 1.9 L (3.4-5.0) g/dL Globulin 4.3 H (2.6-4.0) g/dL Albumin/Globulin Ratio 0.4 L (0.9-1.6) Med Orders - Current: Current Medications Folic Acid (Folic Acid) 1 mg SUBCUT DAILY [facility] Last Admin: 01/20/19 08:35 Dose: 1 mg Furosemide (Lasix) 40 mg IVPUSH TID [facility] Last Admin: 01/20/19 13:57 Dose: 40 mg Heparin Sodium (Porcine) (Heparin Sodium) 5,000 units SUBCUT Q8H [facility] Last Admin: 01/20/19 13:57 Dose: 5,000 units Lorazepam (Ativan) 0 mg IVPUSH Q4H PRN; Protocol PRN Reason: Agitation Last Admin: 01/18/19 23:52 Dose: 2 mg Pantoprazole Sodium (Protonix) 40 mg PO DAILY [facility] Last Admin: 01/20/19 08:35 Dose: 40 mg Thiamine HCl (Vitamin B-1) 100 mg IV DAILY [facility] Last Admin: 01/20/19 08:43 Dose: 100 mg Discontinued Medications Furosemide (Lasix) 40 mg IVPUSH NOW ONE Stop: 01/18/19 18:29 Last Admin: 01/18/19 18:39 Dose: 40 mg Furosemide (Lasix) 40 mg IVPUSH NOW ONE Stop: 01/19/19 09:21 Last Admin: 01/19/19 09:29 Dose: 40 mg Furosemide (Lasix) 40 mg IVPUSH BIDDIURETIC [facility] Magnesium Sulfate 4 gm/ Premix 100 mls @ 50 mls/hr IV ONETIME ONE Stop: 01/19/19 09:56 Last Admin: 01/19/19 08:21 Dose: 50 mls/hr Magnesium Sulfate 4 gm/ Premix 100 mls @ 33.333 mls/hr IV ONETIME ONE Stop: 01/20/19 14:00 Last Admin: 01/20/19 12:46 Dose: 33.333 mls/hr Potassium Chloride (Klor-Con M20) 40 meq PO ONETIME ONE Stop: 01/18/19 23:00 Last Admin: 01/18/19 23:41 Dose: 40 meq Potassium Chloride (Klor-Con M20) 20 meq PO ONETIME ONE Stop: 01/19/19 07:58 Last Admin: 01/19/19 08:31 Dose: 20 meq Potassium Chloride (Klor-Con M20) 60 meq PO ONETIME ONE Stop: 01/20/19 11:02 Last Admin: 01/20/19 11:28 Dose: 60 meq - Exam Quality Assessment: Supplemental Oxygen HEENT: Pupils Equal, Pupils Reactive Lungs: Normal Respiratory Effort, Decreased Breath Sounds, Crackles Cardiovascular: Regular Rate, Regular Rhythm GI/Abdominal Exam: Normal Bowel Sounds, Distended Back Exam: Normal Inspection Extremities: Pedal Edema, Leg Pain Peripheral Pulses: 2+: Radial (L), Radial (R), Dorsalis Pedis (L), Dorsalis Pedis (R) - Problem List & Annotations (1) Elevated liver function tests SNOMED Code(s): 988828336, 625145537 Code(s): R94.5 - ABNORMAL RESULTS OF LIVER FUNCTION STUDIES Status: Acute Current Visit: Yes (2) Hyperbilirubinemia SNOMED Code(s): 79557946 Code(s): E80.6 - OTHER DISORDERS OF BILIRUBIN METABOLISM Status: Acute Current Visit: Yes (3) Hypokalemia SNOMED Code(s): 22253781 Code(s): E87.6 - HYPOKALEMIA Status: Acute Current Visit: Yes (4) Hypomagnesemia SNOMED Code(s): 805957714 Code(s): E83.42 - HYPOMAGNESEMIA Status: Acute Current Visit: Yes (5) Alcohol abuse SNOMED Code(s): 27497348 Code(s): F10.10 - ALCOHOL ABUSE, UNCOMPLICATED Status: Chronic Current Visit: Yes (6) Morbid obesity SNOMED Code(s): 720486042 Code(s): E66.01 - MORBID (SEVERE) OBESITY DUE TO EXCESS CALORIES Status: Chronic Current Visit: Yes (7) Congestive heart failure SNOMED Code(s): 06210961 Code(s): I50.9 - HEART FAILURE, UNSPECIFIED Status: Suspected Current Visit: Yes Qualifiers: Heart failure type: unspecified Heart failure chronicity: acute Qualified Code(s): I50.9 - Heart failure, unspecified - Problem List Review Problem List Initiated/Reviewed/Updated: Yes - Plan Plan:: 33 yo male admitted with edema, hyperbilirubinemia and alcohol abuse concerning for ETOH cirrhosis, acute hepatitis or heart failure. 1. Possible CHF: ECHO poor quality, shows some septal thickening and hyperdynamic LV. Diureses today with Lasix 40 mg IV TID. Strict I/O, Low NA diet. Daily weights. Monitor on telemetry. No chest pain. Dyspnea continues. Will need outpatient sleep study. 2. Possible acute hepatitis: Abdominal US obtained. Hepatitis panel pending. Continue to monitor. Will need follow up with GI and continue to encourage sobriety. 3. Alcohol abuse: Continue Ativan prn Per [facility] protocol. Supplement with thiamine and folic acid. VTE prophylaxis: Heparin Q8hr Dispo: 3 days pending improvement with diuresis.
[2019-01-21 07:09] LABS: BLOOD UREA NITROGEN,BUN 4 mg/dL (7.0-18.0); CARBON DIOXIDE,CO2 39.1 mmol/L (21.0-32.0); CHLORIDE,CL 92 mmol/L (98-107); GLUCOSE RANDOM 103 mg/dL (74-106); POTASSIUM,K 2.5 mmol/L (3.5-5.1); SODIUM,NA 135 mmol/L (136-148)
[2019-01-21] MEDS: Furosemide 40 MG/4 ML VIAL IVPUSH SCH ×3 (07:10→21:15)
[2019-01-21] MEDS: Heparin Sodium 5,000 Units/ML Vial SUBCUT SCH ×3 (07:15→21:16)
[2019-01-21] MEDS: Pantoprazole 40 MG Tab.CR PO SCH (08:24)
[2019-01-21] MEDS: Thiamine 200 MG/2 ML MDV IV SCH (08:25)
[2019-01-21] MEDS: Folic Acid 50 MG/10 ML MDV SUBCUT SCH (08:26)
[2019-01-21] MEDS: Potassium Chloride 20 MEQ Tab.ER PO SCH ×2 (08:35→11:51)
--- NOTE | 2019-01-21 11:20 | PCM.PN ---
- General Info Date of Service: 01/21/19 Admission Dx/Problem (Free Text): Admission Diagnosis/Problem Admission Diagnosis/Problem Edema Subjective Update: patient seen and examined at bedside. Feels better, making good urine. Feet swelling has improved, new erythema noted Functional Status: Reports: Tolerating Diet, Ambulating, Urinating - Review of Systems General: Reports: No Symptoms HEENT: Reports: No Symptoms Pulmonary: Reports: Shortness of Breath Cardiovascular: Reports: Dyspnea on Exertion, Orthopnea, PND, Edema Gastrointestinal: Reports: No Symptoms Genitourinary: Reports: No Symptoms Neurological: Reports: No Symptoms (skin erythema) - Patient Data Vitals - Most Recent: Last Vital Signs Temp 37.7 C 01/21/19 08:00 Pulse 94 01/21/19 08:00 Resp 15 01/21/19 08:00 BP 139/71 01/21/19 08:00 Pulse Ox 95 01/21/19 08:00 Weight - Most Recent: 454 lb 11.184 oz I&O - Last 24 Hours: Intake & Output 01/20/19 01/21/19 01/21/19 22:59 06:59 14:59 Intake Total 900 900 Output Total 1550 2480 Balance -650 -1580 Lab Results Last 24 Hours: Laboratory Results - last 24 hr 01/18/19 01/21/19 01/21/19 Range/Units 22:40 06:23 06:23 WBC 11.00 (4.0-11.0) K/uL RBC 3.46 L (4.50-5.90) M/uL Hgb 12.6 L (13.0-17.0) g/dL Hct 38.5 (38.0-50.0) % MCV 111.3 H (80.0-98.0) fL MCH 36.4 H (27.0-32.0) pg MCHC 32.7 (31.0-37.0) g/dL RDW Std Deviation 72.1 H (28.0-62.0) fl RDW Coeff of Judy 18 H (11.0-15.0) % Plt Count 202 (150-400) K/uL MPV 10.90 (7.40-12.00) fL Add Manual Diff YES Neutrophils % (Manual) 45 L (48.0-80.0) % Band Neutrophils % 16 % Lymphocytes % (Manual) 23 (16.0-40.0) % Monocytes % (Manual) 15 (0.0-15.0) % Basophils % (Manual) 1 (0.0-1.5) % Nucleated RBC % 1.3 /100WBC Absolute Seg Neuts 5.0 (1.4-5.7) Band Neutrophils # 1.8 Lymphocytes # (Manual) 2.5 H (0.6-2.4) Monocytes # (Manual) 1.7 H (0.0-0.8) Basophils # (Manual) 0.1 (0.0-0.1) Nucleated RBCs # 0 K/uL INR 1.42 Sodium (136-148) mmol/L Potassium (3.5-5.1) mmol/L Chloride (98-107) mmol/L Carbon Dioxide (21.0-32.0) mmol/L BUN (7.0-18.0) mg/dL Creatinine (0.8-1.3) mg/dL Est Cr Clr Drug Dosing mL/min Estimated GFR (MDRD) ml/min Glucose (74-106) mg/dL Calcium (8.5-10.1) mg/dL Phosphorus (2.6-4.7) mg/dL Magnesium (1.8-2.4) mg/dL Total Bilirubin (0.2-1.0) mg/dL AST (15-37) IU/L ALT (14-63) IU/L Alkaline Phosphatase (46-116) U/L Total Protein (6.4-8.2) g/dL Albumin (3.4-5.0) g/dL Globulin (2.6-4.0) g/dL Albumin/Globulin Ratio (0.9-1.6) Hepatitis A IgM Ab Negative (Negative) Hep Bs Antigen Negative (Negative) Hep B Core IgM Ab Negative (Negative) Hepatitis C Antibody <0.1 (0.0-0.9) s/co ratio 01/21/19 Range/Units 06:23 WBC (4.0-11.0) K/uL RBC (4.50-5.90) M/uL Hgb (13.0-17.0) g/dL Hct (38.0-50.0) % MCV (80.0-98.0) fL MCH (27.0-32.0) pg MCHC (31.0-37.0) g/dL RDW Std Deviation (28.0-62.0) fl RDW Coeff of Judy (11.0-15.0) % Plt Count (150-400) K/uL MPV (7.40-12.00) fL Add Manual Diff Neutrophils % (Manual) (48.0-80.0) % Band Neutrophils % % Lymphocytes % (Manual) (16.0-40.0) % Monocytes % (Manual) (0.0-15.0) % Basophils % (Manual) (0.0-1.5) % Nucleated RBC % /100WBC Absolute Seg Neuts (1.4-5.7) Band Neutrophils # Lymphocytes # (Manual) (0.6-2.4) Monocytes # (Manual) (0.0-0.8) Basophils # (Manual) (0.0-0.1) Nucleated RBCs # K/uL INR Sodium 135 L (136-148) mmol/L Potassium 2.5 L (3.5-5.1) mmol/L Chloride 92 L (98-107) mmol/L Carbon Dioxide 39.1 H (21.0-32.0) mmol/L BUN 4 L (7.0-18.0) mg/dL Creatinine 0.8 (0.8-1.3) mg/dL Est Cr Clr Drug Dosing 150.48 mL/min Estimated GFR (MDRD) > 60.0 ml/min Glucose 103 (74-106) mg/dL Calcium 8.2 L (8.5-10.1) mg/dL Phosphorus 1.4 L (2.6-4.7) mg/dL Magnesium 1.8 (1.8-2.4) mg/dL Total Bilirubin 13.1 H (0.2-1.0) mg/dL AST 229 H (15-37) IU/L ALT 82 H (14-63) IU/L Alkaline Phosphatase 210 H (46-116) U/L Total Protein 6.3 L (6.4-8.2) g/dL Albumin 1.9 L (3.4-5.0) g/dL Globulin 4.4 H (2.6-4.0) g/dL Albumin/Globulin Ratio 0.4 L (0.9-1.6) Hepatitis A IgM Ab (Negative) Hep Bs Antigen (Negative) Hep B Core IgM Ab (Negative) Hepatitis C Antibody (0.0-0.9) s/co ratio Med Orders - Current: Current Medications Folic Acid (Folic Acid) 1 mg SUBCUT DAILY [facility] Last Admin: 01/21/19 08:26 Dose: 1 mg Furosemide (Lasix) 40 mg IVPUSH TID [facility] Last Admin: 01/21/19 07:10 Dose: 40 mg Heparin Sodium (Porcine) (Heparin Sodium) 5,000 units SUBCUT Q8H [facility] Last Admin: 01/21/19 07:15 Dose: 5,000 units Potassium Chloride 40 meq/ (Sodium Chloride) 270 mls @ 67.5 mls/hr IV ONETIME [facility] Stop: 01/21/19 12:44 Lorazepam (Ativan) 0 mg IVPUSH Q4H PRN; Protocol PRN Reason: Agitation Last Admin: 01/18/19 23:52 Dose: 2 mg Pantoprazole Sodium (Protonix) 40 mg PO DAILY [facility] Last Admin: 01/21/19 08:24 Dose: 40 mg Potassium Chloride (Klor-Con M20) 40 meq PO BID@0800,1200 [facility] Last Admin: 01/21/19 08:35 Dose: 40 meq Thiamine HCl (Vitamin B-1) 100 mg IV DAILY [facility] Last Admin: 01/21/19 08:25 Dose: 100 mg Discontinued Medications Furosemide (Lasix) 40 mg IVPUSH NOW ONE Stop: 01/18/19 18:29 Last Admin: 01/18/19 18:39 Dose: 40 mg Furosemide (Lasix) 40 mg IVPUSH NOW ONE Stop: 01/19/19 09:21 Last Admin: 01/19/19 09:29 Dose: 40 mg Furosemide (Lasix) 40 mg IVPUSH BIDDIURETIC [facility] Magnesium Sulfate 4 gm/ Premix 100 mls @ 50 mls/hr IV ONETIME ONE Stop: 01/19/19 09:56 Last Admin: 01/19/19 08:21 Dose: 50 mls/hr Magnesium Sulfate 4 gm/ Premix 100 mls @ 33.333 mls/hr IV ONETIME ONE Stop: 01/20/19 14:00 Last Admin: 01/20/19 12:46 Dose: 33.333 mls/hr Potassium Chloride (Klor-Con M20) 40 meq PO ONETIME ONE Stop: 01/18/19 23:00 Last Admin: 01/18/19 23:41 Dose: 40 meq Potassium Chloride (Klor-Con M20) 20 meq PO ONETIME ONE Stop: 01/19/19 07:58 Last Admin: 01/19/19 08:31 Dose: 20 meq Potassium Chloride (Klor-Con M20) 60 meq PO ONETIME ONE Stop: 01/20/19 11:02 Last Admin: 01/20/19 11:28 Dose: 60 meq - Exam Quality Assessment: Supplemental Oxygen General: Alert, Oriented Neck: Supple, No Thyromegaly Lungs: Decreased Breath Sounds Cardiovascular: Regular Rate, Regular Rhythm GI/Abdominal Exam: Normal Bowel Sounds, Distended Extremities: Pedal Edema, Redness Peripheral Pulses: 3+: Posterior Tibial (L), Posterior Tibial (R) Neurological: No New Focal Deficit Psy/Mental Status: Alert, Normal Affect - Problem List & Annotations (1) Elevated liver function tests SNOMED Code(s): 529010102, 103943889 Code(s): R94.5 - ABNORMAL RESULTS OF LIVER FUNCTION STUDIES Status: Acute Current Visit: Yes (2) Hyperbilirubinemia SNOMED Code(s): 23058945 Code(s): E80.6 - OTHER DISORDERS OF BILIRUBIN METABOLISM Status: Acute Current Visit: Yes (3) Hypokalemia SNOMED Code(s): 57620689 Code(s): E87.6 - HYPOKALEMIA Status: Acute Current Visit: Yes (4) Hypomagnesemia SNOMED Code(s): 591640280 Code(s): E83.42 - HYPOMAGNESEMIA Status: Acute Current Visit: Yes (5) Alcohol abuse SNOMED Code(s): 57726391 Code(s): F10.10 - ALCOHOL ABUSE, UNCOMPLICATED Status: Chronic Current Visit: Yes (6) Morbid obesity SNOMED Code(s): 554812653 Code(s): E66.01 - MORBID (SEVERE) OBESITY DUE TO EXCESS CALORIES Status: Chronic Current Visit: Yes (7) Congestive heart failure SNOMED Code(s): 06167906 Code(s): I50.9 - HEART FAILURE, UNSPECIFIED Status: Suspected Current Visit: Yes Qualifiers: Heart failure type: unspecified Heart failure chronicity: acute Qualified Code(s): I50.9 - Heart failure, unspecified - Problem List Review Problem List Initiated/Reviewed/Updated: Yes - Plan Plan:: 33 yo male admitted with edema, hyperbilirubinemia and alcohol abuse Could have component of alcoholic cardiomyopathy vs diastolic HF vs Cor pulmonale due to underlying MENDEL. cont lasix for now cont to monitor electrolytes monitor Ins and outs cont tele Erythema likely due to venous stasis and edema Ambulatory pulse oxy to assess for home o2 echocardiogram poor quality, need repeat on OP basis abdominal ultrasound noted. cont Ativan prn CIWA protocol with thiamin and folic acid. sleep study on OP basis Cardio on OP basis Venous Doppler LE noted, no clots Hepatitis panel, liver dysfunction likely due to alcohol abuse PT as tolerated
[2019-01-21] MEDS ORDERED: Magnesium Oxide 400 MG Tab PO ONE (11:21)
--- NOTE | 2019-01-21 13:41 | US ---
Bilateral lower extremity deep venous ultrasound: Duplex and color flow imaging was obtained of the right and left common femoral, superficial femoral, popliteal and posterior tibial veins. Subcutaneous edema noted within the lower left extremity. Normal phasic flow, augmentation and compression is seen. Impression: 1. Subcutaneous edema within the lower left extremity. 2. No findings of deep venous thrombosis is seen within the right or left lower extremities. Diagnostic code #2 MTDD
--- NOTE | 2019-01-21 14:25 | ECHO ---
The echocardiogram report can be seen in this patient's EMR (Electronic Medical Records) in the REPORTS section. The echocardiogram report has also been scanned into PACS and can be seen there as well. CASTRO
[2019-01-21] MEDS ORDERED: Phosphorus #1 250 MG Tab PO ONE (15:34)
[2019-01-22] MEDS: Furosemide 40 MG/4 ML VIAL IVPUSH SCH ×3 (06:35→21:14)
[2019-01-22] MEDS: Heparin Sodium 5,000 Units/ML Vial SUBCUT SCH ×3 (06:38→21:17)
[2019-01-22 07:07] LABS: BLOOD UREA NITROGEN,BUN 5 mg/dL (7.0-18.0); CHLORIDE,CL 92 mmol/L (98-107); GLUCOSE RANDOM 99 mg/dL (74-106); POTASSIUM,K 2.6 mmol/L (3.5-5.1); SODIUM,NA 137 mmol/L (136-148)
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
[2019-01-22] MEDS: Potassium Chloride 20 MEQ Tab.ER PO SCH ×2 (08:49→12:07)
[2019-01-22] MEDS: Folic Acid 50 MG/10 ML MDV SUBCUT SCH (08:50)
[2019-01-22] MEDS: Thiamine 200 MG/2 ML MDV IV SCH (08:50)
[2019-01-22] MEDS: Pantoprazole 40 MG Tab.CR PO SCH (09:06)
[2019-01-23] MEDS: Furosemide 40 MG/4 ML VIAL IVPUSH SCH (06:48)
[2019-01-23] MEDS: Heparin Sodium 5,000 Units/ML Vial SUBCUT SCH (06:51)
[2019-01-23 07:19] LABS: BLOOD UREA NITROGEN,BUN 7 mg/dL (7.0-18.0); CARBON DIOXIDE,CO2 35.9 mmol/L (21.0-32.0); CHLORIDE,CL 92 mmol/L (98-107); GLUCOSE RANDOM 96 mg/dL (74-106); POTASSIUM,K 2.7 mmol/L (3.5-5.1); SODIUM,NA 136 mmol/L (136-148)
[2019-01-23] MEDS ORDERED: Potassium Chloride Riders 40 MEQ in Premix Bag 1 BAG IV ONE (07:31)
[2019-01-23] MEDS: Pantoprazole 40 MG Tab.CR PO SCH (08:43)
[2019-01-23] MEDS: Potassium Chloride 20 MEQ Tab.ER PO SCH ×2 (08:43→11:30)
[2019-01-23] MEDS: Thiamine 200 MG/2 ML MDV IV SCH (08:44)
[2019-01-23] MEDS: Folic Acid 50 MG/10 ML MDV SUBCUT SCH (08:44)
[2019-01-23] MEDS ORDERED: Magnesium Oxide 400 MG Tab PO SCH (09:00)
[2019-01-23] MEDS ORDERED: Linezolid 600 MG Tab PO SCH (11:15)
--- NOTE | 2019-01-23 11:43 | PCM.DCSUM1 ---
Discharge Summary - Hospital Course HPI Initial Comments: The patient was admitted secondary to edema, hepatitis secondary to alcohol consumption. Diagnosis: Stroke: No - Discharge Data Discharge Date: 01/23/19 Discharge Disposition: DC/Tfer to Acute Hospital 02 Condition: Stable - Referral to Home Health Primary Care Physician: PCP None - Discharge Diagnosis/Problem(s) (1) Acute alcoholic hepatitis SNOMED Code(s): 9908169 ICD Code: K70.10 - ALCOHOLIC HEPATITIS WITHOUT ASCITES Status: Acute Priority: High Current Visit: Yes Problem Details: Discriminat score 29. (2) Obesity hypoventilation syndrome SNOMED Code(s): 038385019 ICD Code: E66.2 - MORBID (SEVERE) OBESITY WITH ALVEOLAR HYPOVENTILATION Status: Chronic Priority: High Current Visit: Yes (3) Hypokalemia SNOMED Code(s): 20802914 ICD Code: E87.6 - HYPOKALEMIA Status: Resolved Priority: High Current Visit: Yes (4) Alcohol abuse SNOMED Code(s): 25092738 ICD Code: F10.10 - ALCOHOL ABUSE, UNCOMPLICATED Status: Chronic Current Visit: Yes (5) Morbid obesity SNOMED Code(s): 643983235 ICD Code: E66.01 - MORBID (SEVERE) OBESITY DUE TO EXCESS CALORIES Status: Chronic Current Visit: Yes (6) Hypomagnesemia SNOMED Code(s): 675355077 ICD Code: E83.42 - HYPOMAGNESEMIA Status: Acute Priority: High Current Visit: Yes (7) Hyperbilirubinemia SNOMED Code(s): 96870016 ICD Code: E80.6 - OTHER DISORDERS OF BILIRUBIN METABOLISM Status: Acute Priority: High Current Visit: Yes (8) Hepatic steatosis SNOMED Code(s): 540432615 ICD Code: K76.0 - FATTY (CHANGE OF) LIVER, NOT ELSEWHERE CLASSIFIED Status : Acute Current Visit: Yes (9) Cellulitis, abdominal wall SNOMED Code(s): 95596908 ICD Code: L03.311 - CELLULITIS OF ABDOMINAL WALL Status: Acute Current Visit: Yes - Patient Summary/Data Hospital Course: The patient is a 33-year-old gentleman who had presented to the emergency department via EMS and police department after being found sleeping in his vehicle at an intersection. The patient had been admitted secondary to edema. He was also noted to have heavy alcohol consumption of one and a half liters of alcohol per day. The patient had been initially kept on CIWAA protocol on admission. The patient also had reported that he had jaundice prior to admission. The patient was also noted to have shortness of breath and he had been placed initially on Lasix and had improved somewhat although he did require CPAP and had been noted to have difficulty in breathing as well as apneic periods will sleeping. The patient is morbidly obese with a body mass index of 56.5. With the use of Lasix the patient did have some improvement of his pedal edema and this likely thought that the patient thought to have cor pulmonale secondary to his obstructive sleep apnea. He did have a hyperdynamic left ventricular function on 2-D echocardiogram which was obtained on 2018. His ejection fraction was noted to be 70-75%. Because of the patient's body habitus it was a suboptimal window. The patient also had an ultrasound of his abdomen and this showed that he did likely have hepatic steatosis. The patient initially had been placed under CPAP oxygen support with an FiO2 of 20% and a pressure support of 8 cm of water. On initial presentation the patient's bilirubin was 11.3 mg/dL and by day of discharge it had worsened to 15.8 mg/dL. The patient had been noted to also have severe hypoalbuminemia at 1.8 mg/dL. The patient had a hepatitis panel which was also negative. The patient did have a Maddrey's discriminat function of 29. The patient also had related that he was having swelling, erythema of his anterior abdominal wall and this is found to be consistent with abdominal wall cellulitis. The patient had been started on by mouth Zyvox 600 mg by mouth twice a day. By day of discharge the patient had been proven to be hemodynamically stable with his blood pressure of 128/79 his respirations had been variable at 26 when not on oxygen and his pulse oximetry had been at 95% on at least 2 L of oxygen via nasal cannula. The patient also was noted to have an elevation of his white cell count at 13,000 along with an MCV of 112.8. His platelets were normal. The patient did have elevation of his AST at 213 and a LTS 69. His alkaline phosphatase was also elevated at 179. The patient has been advised and discussion was held with his family for aftercare. Because of the patient's alcohol consumption as well as the severity of his alcoholic hepatitis I have recommended that the patient be considered for inpatient alcohol rehabilitation care. The patient will be transferred via ambulance to tertiary care center. He is also to continue on his diet as tolerated. He is to have activity as tolerated. Faith Ortiz is accepting physician. - Patient Instructions Diet: Heart Healthy Diet Activity: As Tolerated - Discharge Plan *PRESCRIPTION DRUG MONITORING PROGRAM REVIEWED*: No *COPY OF PRESCRIPTION DRUG MONITORING REPORT IN PATIENT CLEMENCIA: No Home Medications: Home Meds LORazepam [Ativan] 0 mg IVPUSH Q4H PRN vial 01/23/19 [Rx] Linezolid [Zyvox] 600 mg PO Q12H tablet 01/23/19 [Rx] Magnesium Oxide 400 mg PO BID tablet 01/23/19 [Rx] Pantoprazole [ProTONIX] 40 mg PO DAILY tab.cr 01/23/19 [Rx] Thiamine [Vitamin B-1] 100 mg IV DAILY mdv 01/23/19 [Rx] Oxygen Therapy Mode: Nasal Cannula Oxygen Flow Rate (L/min): 2 Patient Handouts: Alcohol Use Disorder, Shortness of Breath, Adult, Easy-to- Read, What You Need to Know About Alcohol Abuse and Dependence, Adult, Edema, Hypokalemia, Sleep Apnea, [id number]-[id number], Electrolyte Disorders, Pediatric, Heart Failure, Living With Heart Failure Referrals: [facility] [Outside] Uriel Salazar MD [Ordering Only Provider] - 01/28/19 10:30 am Ra Summers MD [Ordering Only Provider] - 01/28/19 2:30 pm - Discharge Summary/Plan Comment DC Time >30 min.: Yes - General Info Date of Service: 01/23/19 Admission Dx/Problem (Free Text: Admission Diagnosis/Problem Admission Diagnosis/Problem Edema, obesity, alcohol withdrawal, cor pulmonale Subjective Update: The patient is still having shortness of breath along with worsening jaundice. Functional Status: Reports: Pain Controlled - Review of Systems General: Reports: Weakness, Fatigue HEENT: Reports: No Symptoms Pulmonary: Reports: Shortness of Breath Cardiovascular: Reports: No Symptoms Gastrointestinal: Reports: Abdominal Pain Genitourinary: Reports: No Symptoms Musculoskeletal: Reports: No Symptoms Skin: Reports: No Symptoms Neurological: Reports: No Symptoms Psychiatric: Reports: No Symptoms - Patient Data Vitals - Most Recent: Last Vital Signs Temp 36.4 C 01/23/19 08:00 Pulse 101 H 01/23/19 08:00 Resp 26 H 01/23/19 08:00 BP 128/79 01/23/19 08:00 Pulse Ox 95 01/23/19 08:00 Weight - Most Recent: 193.485 kg I&O - Last 24 hours: Intake & Output 01/22/19 01/23/19 01/23/19 22:59 06:59 14:59 Intake Total 900 800 Output Total 1075 1325 Balance -175 -525 Lab Results - Last 24 hrs: Laboratory Results - last 24 hr 01/23/19 01/23/19 01/23/19 Range/Units 06:20 06:20 06:20 WBC 13.19 H (4.0-11.0) K/uL RBC 3.51 L (4.50-5.90) M/uL Hgb 12.8 L (13.0-17.0) g/dL Hct 39.6 (38.0-50.0) % MCV 112.8 H (80.0-98.0) fL MCH 36.5 H (27.0-32.0) pg MCHC 32.3 (31.0-37.0) g/dL RDW Std Deviation 75.4 H (28.0-62.0) fl RDW Coeff of Judy 19 H (11.0-15.0) % Plt Count 245 (150-400) K/uL MPV 11.30 (7.40-12.00) fL Add Manual Diff YES Neutrophils % (Manual) 59 (48.0-80.0) % Band Neutrophils % 10 % Lymphocytes % (Manual) 21 (16.0-40.0) % Monocytes % (Manual) 10 (0.0-15.0) % Nucleated RBC % 0.9 /100WBC Absolute Seg Neuts 7.8 H (1.4-5.7) Band Neutrophils # 1.3 Lymphocytes # (Manual) 2.8 H (0.6-2.4) Monocytes # (Manual) 1.3 H (0.0-0.8) Nucleated RBCs # 0 K/uL INR 1.56 APTT (18.6-31.3) SEC Sodium 136 (136-148) mmol/L Potassium 2.7 L (3.5-5.1) mmol/L Chloride 92 L (98-107) mmol/L Carbon Dioxide 35.9 H (21.0-32.0) mmol/L BUN 7 (7.0-18.0) mg/dL Creatinine 0.8 (0.8-1.3) mg/dL Est Cr Clr Drug Dosing 150.48 mL/min Estimated GFR (MDRD) > 60.0 ml/min Glucose 96 (74-106) mg/dL Calcium 8.2 L (8.5-10.1) mg/dL Phosphorus 2.1 L (2.6-4.7) mg/dL Magnesium 1.7 L (1.8-2.4) mg/dL Total Bilirubin 15.8 H (0.2-1.0) mg/dL AST 213 H (15-37) IU/L ALT 69 H (14-63) IU/L Alkaline Phosphatase 179 H (46-116) U/L Total Protein 6.4 (6.4-8.2) g/dL Albumin 1.8 L (3.4-5.0) g/dL Globulin 4.6 H (2.6-4.0) g/dL Albumin/Globulin Ratio 0.4 L (0.9-1.6) 01/23/19 Range/Units 06:20 WBC (4.0-11.0) K/uL RBC (4.50-5.90) M/uL Hgb (13.0-17.0) g/dL Hct (38.0-50.0) % MCV (80.0-98.0) fL MCH (27.0-32.0) pg MCHC (31.0-37.0) g/dL RDW Std Deviation (28.0-62.0) fl RDW Coeff of Judy (11.0-15.0) % Plt Count (150-400) K/uL MPV (7.40-12.00) fL Add Manual Diff Neutrophils % (Manual) (48.0-80.0) % Band Neutrophils % % Lymphocytes % (Manual) (16.0-40.0) % Monocytes % (Manual) (0.0-15.0) % Nucleated RBC % /100WBC Absolute Seg Neuts (1.4-5.7) Band Neutrophils # Lymphocytes # (Manual) (0.6-2.4) Monocytes # (Manual) (0.0-0.8) Nucleated RBCs # K/uL INR APTT 28.0 (18.6-31.3) SEC Sodium (136-148) mmol/L Potassium (3.5-5.1) mmol/L Chloride (98-107) mmol/L Carbon Dioxide (21.0-32.0) mmol/L BUN (7.0-18.0) mg/dL Creatinine (0.8-1.3) mg/dL Est Cr Clr Drug Dosing mL/min Estimated GFR (MDRD) ml/min Glucose (74-106) mg/dL Calcium (8.5-10.1) mg/dL Phosphorus (2.6-4.7) mg/dL Magnesium (1.8-2.4) mg/dL Total Bilirubin (0.2-1.0) mg/dL AST (15-37) IU/L ALT (14-63) IU/L Alkaline Phosphatase (46-116) U/L Total Protein (6.4-8.2) g/dL Albumin (3.4-5.0) g/dL Globulin (2.6-4.0) g/dL Albumin/Globulin Ratio (0.9-1.6) Med Orders - Current: Current Medications Folic Acid (Folic Acid) 1 mg SUBCUT DAILY [facility] Last Admin: 01/23/19 08:44 Dose: 1 mg Furosemide (Lasix) 40 mg IVPUSH TID MAUDE Last Admin: 01/23/19 06:48 Dose: 40 mg Heparin Sodium (Porcine) (Heparin Sodium) 5,000 units SUBCUT Q8H [facility] Last Admin: 01/23/19 06:51 Dose: 5,000 units Potassium Chloride 40 meq/ (Sodium Chloride) 270 mls @ 67.5 mls/hr IV ONETIME MAUDE Stop: 01/23/19 12:39 Last Admin: 01/23/19 08:45 Dose: 67.5 mls/hr Linezolid (Zyvox) 600 mg PO Q12H MAUDE Last Admin: 01/23/19 11:29 Dose: 600 mg Lorazepam (Ativan) 0 mg IVPUSH Q4H PRN; Protocol PRN Reason: Agitation Last Admin: 01/18/19 23:52 Dose: 2 mg Magnesium Oxide (Magnesium Oxide) 400 mg PO BID MAUDE Last Admin: 01/23/19 08:43 Dose: 400 mg Pantoprazole Sodium (Protonix) 40 mg PO DAILY MAUDE Last Admin: 01/23/19 08:43 Dose: 40 mg Potassium Chloride (Klor-Con M20) 40 meq PO BID@0800,1200 [facility] Last Admin: 01/23/19 11:30 Dose: 40 meq Thiamine HCl (Vitamin B-1) 100 mg IV DAILY [facility] Last Admin: 01/23/19 08:44 Dose: 100 mg Discontinued Medications Furosemide (Lasix) 40 mg IVPUSH NOW ONE Stop: 01/18/19 18:29 Last Admin: 01/18/19 18:39 Dose: 40 mg Furosemide (Lasix) 40 mg IVPUSH NOW ONE Stop: 01/19/19 09:21 Last Admin: 01/19/19 09:29 Dose: 40 mg Furosemide (Lasix) 40 mg IVPUSH BIDDIURETIC [facility] Magnesium Sulfate 4 gm/ Premix 100 mls @ 50 mls/hr IV ONETIME ONE Stop: 01/19/19 09:56 Last Admin: 01/19/19 08:21 Dose: 50 mls/hr Magnesium Sulfate 4 gm/ Premix 100 mls @ 33.333 mls/hr IV ONETIME ONE Stop: 01/20/19 14:00 Last Admin: 01/20/19 12:46 Dose: 33.333 mls/hr Potassium Chloride 40 meq/ (Sodium Chloride) 270 mls @ 67.5 mls/hr IV ONETIME MAUDE Stop: 01/21/19 12:44 Last Admin: 01/21/19 12:11 Dose: 67.5 mls/hr Magnesium Oxide (Magnesium Oxide) 800 mg PO ONETIME ONE Stop: 01/21/19 11:22 Last Admin: 01/21/19 11:51 Dose: 800 mg Potassium Chloride (Klor-Con M20) 40 meq PO ONETIME ONE Stop: 01/18/19 23:00 Last Admin: 01/18/19 23:41 Dose: 40 meq Potassium Chloride (Klor-Con M20) 20 meq PO ONETIME ONE Stop: 01/19/19 07:58 Last Admin: 01/19/19 08:31 Dose: 20 meq Potassium Chloride (Klor-Con M20) 60 meq PO ONETIME ONE Stop: 01/20/19 11:02 Last Admin: 01/20/19 11:28 Dose: 60 meq Sodium Phosphate (Neutra-Phos) 250 mg PO ONETIME ONE Stop: 01/21/19 15:35 Last Admin: 01/21/19 15:57 Dose: 250 mg - Exam Quality Assessment: Reports: Supplemental Oxygen General: Reports: Alert, Oriented, Cooperative HEENT: Reports: Pupils Equal, Pupils Reactive, Scleral Icterus. Denies: Mucous Membr. Moist/[place] (Dry) Neck: Reports: Supple, Trachea Midline Lungs: Reports: Decreased Breath Sounds Cardiovascular: Reports: Regular Rate, Regular Rhythm GI/Abdominal Exam: Normal Bowel Sounds, No Distention, Other (Obese, details of abdominal exam difficult to determine secondary to body habitus.) Back Exam: Reports: Normal Inspection, Full Range of Motion Extremities: Normal Inspection, Pedal Edema Skin: Reports: Warm, Dry, Other (Area of edema, induration anterior abdominal wall below umbilicus) Neurological: Reports: No New Focal Deficit Psy/Mental Status: Reports: Alert, Depressed. Denies: Normal Affect (Flat affect), Normal Mood
== END 2019-01-23 11:45 | DRG 433 ==
LOC: MW.ED 17:06 → MW.MS 19:27
PROVIDERS: ADMIT Internal Medicine; ATTEND Internal Medicine
PROC: HZ2ZZZZ Detoxification Services for Substance Abuse Treatment (ICD-10-PCS; principal; 2019-01-18)
PROC: 5A09357 Assistance with Respiratory Ventilation, Less than 24 Consecutive Hours, Continuous Positive Airway Pressure (ICD-10-PCS; 2019-01-23)
DX: K70.10 Alcoholic hepatitis without ascites (principal); F10.188 Alcohol abuse with other alcohol-induced disorder; E66.2 Morbid (severe) obesity with alveolar hypoventilation; L03.311 Cellulitis of abdominal wall; Z68.43 Body mass index [BMI] 50.0-59.9, adult; I50.9 Heart failure, unspecified; E87.6 Hypokalemia; E83.42 Hypomagnesemia; E80.6 Other disorders of bilirubin metabolism; K76.0 Fatty (change of) liver, not elsewhere classified; I27.81 Cor pulmonale (chronic); E88.09 Other disorders of plasma-protein metabolism, not elsewhere classified; Z88.1 Allergy status to other antibiotic agents
CPT/HCPCS: 36415; 71045; 71045-26; 76700; 76700-26; 80053; 80074; 81001; 82150; 83690; 83735; 83880; 84100; 84484; 85025; 85610; 85730; 93005; 93306; 93970; 93970-26; 94660; 96374; 99284; 99285-25; A9270-GY; J1644; J1940; J2060; J3411; J3475; J3480; J7050